=== PATIENT | female | born 1940 | race Caucasian/White ===

== ENCOUNTER 2016-10-12 08:45 | Outpatient (RCR) | payer MEDICARE, BC | END 2016-12-13 | disposition still patient (30) | LOC: WSPT | DX: M25.861 Other specified joint disorders, right knee (principal); I82.811 Embolism and thrombosis of superficial veins of right lower extremity; I82.491 Acute embolism and thrombosis of other specified deep vein of right lower extremity; M71.21 Synovial cyst of popliteal space [Baker], right knee; M25.562 Pain in left knee | CPT/HCPCS: G8978-GP; G8979-GP ==

== ENCOUNTER → 2016-10-12 | Outpatient (CLI) | payer MEDICARE, BC | LOC: COL.VAS 15:03 | DX: M79.89 Other specified soft tissue disorders (principal) ==

== ENCOUNTER 2016-12-29 10:19 | Outpatient (RCR) | payer MEDICARE, BC | END 2016-12-29 10:21 | LOC: WSPT 10:19 | DX: M22.2X1 Patellofemoral disorders, right knee (principal); M22.2X2 Patellofemoral disorders, left knee ==

== ENCOUNTER → 2017-01-11 | Outpatient (CLI) | payer MEDICARE, BC | LOC: MC.RAD 09:40 | DX: Z12.31 Encounter for screening mammogram for malignant neoplasm of breast (principal) ==

== ENCOUNTER → 2018-01-18 | Outpatient (CLI) | payer MEDICARE, BC | LOC: MC.RAD 09:39 | DX: Z12.31 Encounter for screening mammogram for malignant neoplasm of breast (principal); I10 Essential (primary) hypertension ==

== ENCOUNTER → 2018-07-05 | Outpatient (CLI) | payer MEDICARE, BC | LOC: COL.PUL 07:58 | DX: R05 Cough (principal) ==

== ENCOUNTER → 2018-07-24 | Outpatient (CLI) | payer MEDICARE, BC | LOC: COL.VAS 08:51 | DX: Z01.818 Encounter for other preprocedural examination (principal); Z86.718 Personal history of other venous thrombosis and embolism; M71.21 Synovial cyst of popliteal space [Baker], right knee ==

== ENCOUNTER → 2018-08-10 | Outpatient (CLI) | payer MEDICARE, BC | LOC: COL.PUL 10:00 | DX: J44.9 Chronic obstructive pulmonary disease, unspecified (principal) | CPT/HCPCS: J7674 ==

== ENCOUNTER 2018-11-28 11:02 | Day surgery (SDC) | payer MEDICARE, BC ==
[~2018-11-28] VITALS: Ht 162.6 cm; Wt 97.9 kg
[2018-11-28 11:27] VITALS: BP 143/79; PULSE 85; TEMP 97.8
[2018-11-28] MEDS ORDERED: MIRAPEX0.25 MG PO (11:30)
[2018-11-28] MEDS ORDERED: SYNTHROID0.05 MG/TA PO (11:30)
[2018-11-28] MEDS ORDERED: DITROPAN 5MG TAB5 MG PO (11:30)
[2018-11-28] MEDS ORDERED: CELEXA40 MG PO (11:31)
[2018-11-28] MEDS ORDERED: MICARDIS80 MG PO (11:31)
[2018-11-28 15:24] VITALS: BP 135/47; PULSE 61; TEMP 97.3
--- NOTE | 2018-11-28 15:24 | NUR ---
The patient arrived back to [facility] from the operating room at this time. The patient appears alert and oriented and denies any pain or nausea at this time. The patient's post operateive vital signs were started at this time. The patient requests to try some water at this time. Call light is within reach. Will continue to monitor the patient.
[2018-11-28 15:39] VITALS: BP 102/72; PULSE 63
--- NOTE | 2018-11-28 15:39 | NUR ---
The patient appears to be tolerating the water well and requests to try some vahid crackers at this time. The patient's vital signs appear stable. The patient's is now at her bedside. Will continue to monitor the patient.
[2018-11-28 15:51] VITALS: BP 135/55; PULSE 65
--- NOTE | 2018-11-28 15:51 | NUR ---
Discharge instructions were reviewed with the patient and her at this time. They both verbalized understanding and questions were answered at this time. The patient's IV to her left hand was removed and a pressure dressing was applied to the site. The nurse instructed the patient to get dressed and notify the staff when she is ready to be escorted out.
--- NOTE | 2018-11-28 16:00 | NUR ---
The patient was escorted out via wheelchair to a private vehicle by OLYA Iqbal. The patient's belongings and discharge paperwork were sent with her. The patient's is present to drive her home.
== END 2018-11-28 16:00 | disposition home or self-care (01) ==
LOC: SDCO 11:02
DX: T83.190A Other mechanical complication of urinary electronic stimulator device, initial encounter (principal); N39.41 Urge incontinence; R35.0 Frequency of micturition; G47.30 Sleep apnea, unspecified; I10 Essential (primary) hypertension; M54.16 Radiculopathy, lumbar region; E66.9 Obesity, unspecified; Z68.35 Body mass index [BMI] 35.0-35.9, adult; M51.35 Other intervertebral disc degeneration, thoracolumbar region; E04.1 Nontoxic single thyroid nodule; Z90.49 Acquired absence of other specified parts of digestive tract; Z98.84 Bariatric surgery status; Z90.710 Acquired absence of both cervix and uterus; Z80.3 Family history of malignant neoplasm of breast; Z86.73 Personal history of transient ischemic attack (TIA), and cerebral infarction without residual deficits; Z79.899 Other long term (current) drug therapy; J45.909 Unspecified asthma, uncomplicated; M19.90 Unspecified osteoarthritis, unspecified site
CPT/HCPCS: C1767; J0690; J2250; J2405; J2704; J3010; J7120

== ENCOUNTER → 2019-02-07 | Outpatient (CLI) | payer MEDICARE, BC ==
[~2019-02-07] MED LIST: CELEXA40 MG PO; DITROPAN 5MG TAB5 MG PO; MICARDIS80 MG PO; MIRAPEX0.25 MG PO; SYNTHROID0.05 MG/TA PO
== END ==
LOC: MC.RAD 09:27
DX: Z12.31 Encounter for screening mammogram for malignant neoplasm of breast (principal)

== ENCOUNTER → 2019-02-28 | Outpatient (CLI) | payer MEDICARE | LOC: COL.RAD 09:27 | DX: R19.04 Left lower quadrant abdominal swelling, mass and lump (principal) ==

== ENCOUNTER 2020-03-10 14:50 | Emergency (ER) | payer MEDICARE ==
[~2020-03-10] VITALS: Ht 162.6 cm; Wt 95.5 kg
[2020-03-10 14:58] VITALS: BP 162/81; TEMP 99.1
[2020-03-10 15:30] LABS: BASO % 0.5 % (0.0-2.0); EOS # 0.1 (0.0-0.7); EOS % 1.8 % (0-4.0); GRAN # 3.5 (1.4-6.5); HEMATOCRIT 41.1 % (37.0-47.0); HEMOGLOBIN 13.3 g/dl (12.5-16.0); LYMPH # 2.2 (1.2-3.4); LYMPH % 34.2 % (20.0-51.0); MEAN CELL VOLUME 93 fl (80.0-100.0); MEAN CORPUSCULAR HEMOGLOBIN 30 pg (27.0-31.0); MEAN CORPUSCULAR HGB CONC 32 g/dl (33.0-37.0); MEAN PLATELET VOLUME 11.1 fl (7.4-10.4); MONO # 0.7 (0.1-0.6); MONO % 10.3 % (1.7-9.3); PLATELET COUNT 205 K/mm3 (130-400); RED BLOOD COUNT 4.41 M/mm3 (4.10-5.30); REDCELL DISTRIBUTION WIDTH-CV 13.4 % (11.5-14.5)
[2020-03-10] MEDS ORDERED: XANAX 0.5MG0.5 MG PO (15:30)
[2020-03-10 15:38] LABS: INR 1.1 (0.8-3.0); PROTHROMBIN TIME 11.9 SECONDS (9.7-12.8)
[2020-03-10 15:39] LABS: ALANINE AMINOTRANSFERASE 30 U/L (4-34); ALBUMIN 3.7 gm/dL (3.5-5.0); ALKALINE PHOSPHATASE 116 U/L (50-136); ANION GAP 5 mmol/L (7-16); AST,SGOT 31 U/L (15-37); BILIRUBIN,TOTAL 0.8 mg/dL (0.0-1.0); BLOOD UREA NITROGEN 16 mg/dL (7-17); CALCIUM 8.8 mg/dL (8.4-10.2); CARBON DIOXIDE 24 mmol/L (22-30); CHLORIDE 106 mmol/L (98-107); CREATININE, serum 0.74 (0.52-1.25); GLUCOSE 99 mg/dL (74-106); POTASSIUM 4.4 mmol/L (3.4-5.0); SODIUM 136 mmol/L (137-145); TOTAL PROTEIN 6.9 gm/dL (6.4-8.2)
[2020-03-10 15:51] LABS: TROPONIN-I < 0.012 ng/mL (0.000-0.035)
[2020-03-10 16:42] VITALS: PULSE 56
== END 2020-03-10 16:44 | disposition home or self-care (01) ==
LOC: COL.ER 14:50
PROVIDERS: Emergency Medicine
DX: S01.01XA Laceration without foreign body of scalp, initial encounter (principal); R55 Syncope and collapse; I10 Essential (primary) hypertension; W19.XXXA Unspecified fall, initial encounter; Y92.512 Supermarket, store or market as the place of occurrence of the external cause
CPT/HCPCS: J7040

== ENCOUNTER → 2020-04-15 | Outpatient (CLI) | payer MEDICARE ==
[~2020-04-15] MED LIST changes: +XANAX 0.5MG0.5 MG PO
== END ==
LOC: COL.RAD 13:15
DX: Z01.812 Encounter for preprocedural laboratory examination (principal); R90.82 White matter disease, unspecified; R55 Syncope and collapse
CPT/HCPCS: A9585

== ENCOUNTER 2021-03-13 09:26 | Emergency (ER) | payer MEDICARE ==
[~2021-03-13] VITALS: Ht 162.6 cm; Wt 95.0 kg
[2021-03-13 09:54] VITALS: TEMP 98.2
[2021-03-13] MEDS ORDERED: MIRAPEX0.25 MG PO (10:08)
[2021-03-13] MEDS ORDERED: BENICAR40 MG PO (10:09)
[2021-03-13 10:34] LABS: COLLECTION METHOD CLEAN CATCH
[2021-03-13 10:51] LABS: MUCOUS Present /lpf; PH 5 (5-8); URINE APPEARANCE Hazy; URINE BACTERIA Rare /hpf; URINE BILIRUBIN Negative (NEGATIVE); URINE BLOOD 1+ (NEGATIVE); URINE COLOR Yellow; URINE GLUCOSE Negative (NEGATIVE); URINE KETONE Negative (NEGATIVE); URINE LEUKOCYTE ESTERASE Negative (NEGATIVE); URINE NITRATE Negative (NEGATIVE); URINE PROTEIN(semi-quant) Negative (NEGATIVE); URINE UROBILINOGEN Negative (NEGATIVE)
[2021-03-13 10:58] LABS: BASO % 0.2 % (0.0-2.0); EOS % 0.7 % (0-4.0); GRAN # 3.9 K/mm3 (1.4-6.5); GRAN % 84.8 % (42.2-75.2); HEMATOCRIT 39.8 % (37.0-47.0); HEMOGLOBIN 13.4 g/dl (12.5-16.0); LYMPH # 0.3 K/mm3 (1.2-3.4); LYMPH % 6.5 % (20.0-51.0); MEAN CELL VOLUME 88 fl (80.0-100.0); MEAN CORPUSCULAR HEMOGLOBIN 30 pg (27.0-31.0); MEAN CORPUSCULAR HGB CONC 34 g/dl (33.0-37.0); MEAN PLATELET VOLUME 11.3 fl (7.4-10.4); MONO # 0.3 K/mm3 (0.1-0.6); MONO % 7.4 % (1.7-9.3); PLATELET COUNT 128 K/mm3 (130-400); RED BLOOD COUNT 4.51 M/mm3 (4.10-5.30); REDCELL DISTRIBUTION WIDTH-CV 13.8 % (11.5-14.5)
[2021-03-13 11:11] LABS: ALBUMIN 3.2 gm/dL (3.4-4.8); CALCIUM 8.9 mg/dL (8.4-10.2); CREATININE, serum 0.79 mg/dL (0.57-1.11); POTASSIUM 3.9 mmol/L (3.5-4.5); TOTAL PROTEIN 6.1 gm/dL (6.2-8.1)
[2021-03-13] MEDS ORDERED: MACROBID 1100 MG/CAP PO ×3 (12:15→12:31)
[2021-03-13 12:26] VITALS: BP 104/60; PULSE 76
== END 2021-03-13 12:33 | disposition home or self-care (01) ==
LOC: COL.ER 09:26
PROVIDERS: Family Medicine
DX: S09.90XA Unspecified injury of head, initial encounter (principal); N39.0 Urinary tract infection, site not specified; R55 Syncope and collapse; I10 Essential (primary) hypertension; F03.90 Unspecified dementia, unspecified severity, without behavioral disturbance, psychotic disturbance, mood disturbance, and anxiety; Z79.899 Other long term (current) drug therapy; W19.XXXA Unspecified fall, initial encounter
CPT/HCPCS: J0696